=== PATIENT | female | born 1940 | race Caucasian/White ===

== ENCOUNTER → 2017-03-17 | Outpatient (CLI) | payer MEDICARE, BC ==
[2017-03-17 13:51] LABS: CH 30.3; CHCM 34.3; HCT 41.5 % (34.0-46.0); HDW 2.88; MCH 29.9 pg (25.0-35.0); MCHC 33.8 g/dL (31.0-37.0); MCV 88.6 fL (80.0-100.0); Mean Platelet Volume 6.5; RBC 4.69 m/uL (3.80-5.40); WBC 7.1 k/uL (3.8-10.6)
[2017-03-17 13:58] LABS: Appearance,Urine Clear (Clear); Bilirubin,Urine Negative (Negative); Glucose,Urine (UA) Negative (Negative); Ketones,Urine Negative (Negative); Leukocyte Esterase,Urine Small (Negative); Nitrite,Urine Negative (Negative); PH, Urine 6.5 (5.0-8.0); Particle Count 941; Protein,Urine Negative (Negative); RBC,Urine <1 /hpf (0-5); Specific Gravity,Urine 1.002 (1.001-1.035); Squamous Epithelial Cell,Urine 1 /hpf (0-4); UA Billing (MACRO vs. MICRO) MICRO; Urobilinogen,Urine <2.0 mg/dL (<2.0); WBC,Urine 3 /hpf (0-5)
[2017-03-17 14:02] LABS: ALT 72 U/L (9-52); AST 93 U/L (14-36); Alkaline Phosphatase 49 U/L (38-126); Anion Gap 10 mmol/L; Blood Urea Nitrogen 15 mg/dL (7-17); Calcium 9.2 mg/dL (8.4-10.2); Carbon Dioxide 29 mmol/L (22-30); Chloride 100 mmol/L (98-107); Glucose 110 mg/dL (74-99); Non-African American GFR(MDRD) >60 (>60 ml/min/1.73 sqM); Phosphorous 3.9 mg/dL (2.5-4.5); Potassium 3.6 mmol/L (3.5-5.1); Sodium 139 mmol/L (137-145); Total Bilirubin 1.2 mg/dL (0.2-1.3); Total Protein 7.1 g/dL (6.3-8.2)
--- NOTE | 2017-03-17 23:59 | US ---
EXAMINATION TYPE: US kidneys/renal and bladder DATE OF EXAM: 03/17/2017 1:09 PM COMPARISON: NONE CLINICAL HISTORY: 76-year-old female N18.3 Chronic kidney disease stage 3. CKD stage 3, frequent UTIs , pelvic pain. TECHNIQUE: Multiple sonographic images of the kidneys and bladder were obtained. FINDINGS: Right Kidney: 8.3 x 3.2 x 4.3 cm, small with cortical thinning. Some scattered cortical defects are present. Echogenic foci are present throughout, largest measuring 1.2 cm in the lower pole. No hydron ephrosis. Left Kidney: 9.0 x 5.3 x 4.3 cm with a lobulated contour. A few cortical defects are suggested. There is a tiny 7 mm exophytic hypoechoic lesion from the lateral mid pole. No hydronephrosis. No gross abnormality of the urine distended bladder. Both ureteral jets are visualized IMPRESSION: 1. Chronic medical renal disease. No hydronephrosis on either side. 2. Cortical defects involving the right greater than left kidneys could reflect sequela of prior vasc ular or infectious insults. 3. Echogenic foci throughout the right kidney, largest measuring 1.2 cm. Some of these are suspected to represent prominent vascular reflectors/vascular calcifications. Some underlying nephrolithiasis i s likely also present. 4. A tiny 7 mm exophytic lesion from the mid pole left kidney. Recommend six-month follow-up to reass ess and exclude a small solid mass.
== END | disposition home or self-care (01) ==
LOC: RADUSWWP 12:45 → MERGE 13:00
PROVIDERS: ATTEND Internal Medicine
DX: N18.3 Chronic kidney disease, stage 3 (moderate) (principal); R93.421 Abnormal radiologic findings on diagnostic imaging of right kidney; R93.422 Abnormal radiologic findings on diagnostic imaging of left kidney; N20.0 Calculus of kidney; N28.89 Other specified disorders of kidney and ureter; D64.9 Anemia, unspecified; E83.39 Other disorders of phosphorus metabolism; N39.0 Urinary tract infection, site not specified
CPT/HCPCS: 76770; 80053; 81001; 84100; 85027

== ENCOUNTER → 2017-07-19 | Outpatient (CLI) | payer MEDICARE, BC ==
[2017-07-19 10:59] LABS: CH 30.4; CHCM 34.7; HCT 45.1 % (34.0-46.0); HDW 2.92; HGB 15.5 gm/dL (11.4-16.0); MCH 30.3 pg (25.0-35.0); MCHC 34.4 g/dL (31.0-37.0); Mean Platelet Volume 6.5; RBC 5.13 m/uL (3.80-5.40); RDW 13.2 % (11.5-15.5); WBC 5.8 k/uL (3.8-10.6)
[2017-07-19 11:08] LABS: ALT 48 U/L (9-52); AST 43 U/L (14-36); Alkaline Phosphatase 61 U/L (38-126); Anion Gap 11 mmol/L; Blood Urea Nitrogen 16 mg/dL (7-17); Calcium 9.6 mg/dL (8.4-10.2); Carbon Dioxide 29 mmol/L (22-30); Chloride 104 mmol/L (98-107); Glucose 129 mg/dL (74-99); Magnesium 1.9 mg/dL (1.6-2.3); Non-African American GFR(MDRD) >60 (>60 ml/min/1.73 sqM); Phosphorous 4.3 mg/dL (2.5-4.5); Potassium 4.3 mmol/L (3.5-5.1); Sodium 144 mmol/L (137-145); Total Bilirubin 0.8 mg/dL (0.2-1.3); Total Protein 7.4 g/dL (6.3-8.2); Uric Acid 8.4 mg/dL (3.7-7.4)
[2017-07-19 11:13] LABS: Appearance,Urine Clear (Clear); Bacteria,Urine Rare /hpf; Bilirubin,Urine Negative (Negative); Glucose,Urine (UA) Negative (Negative); Ketones,Urine Negative (Negative); Leukocyte Esterase,Urine Moderate (Negative); Mucus,Urine Few /hpf; Nitrite,Urine Negative (Negative); Particle Count 6510; Protein,Urine Trace (Negative); RBC,Urine 20 /hpf (0-5); Specific Gravity,Urine 1.021 (1.001-1.035); Squamous Epithelial Cell,Urine 1 /hpf (0-4); UA Billing (MACRO vs. MICRO) MICRO; WBC,Urine 8 /hpf (0-5)
[2017-07-19 13:55] LABS: Hemoglobin A1C 5.9 % (4.2-6.1)
[2017-07-19 17:14] LABS: Iron Saturation 39.07 (12.00-45.00)
== END | disposition home or self-care (01) ==
LOC: LABWHC1 10:17
PROVIDERS: ATTEND Internal Medicine
DX: N18.2 Chronic kidney disease, stage 2 (mild) (principal)
CPT/HCPCS: 36415; 80053; 81001; 82306; 82728; 83036; 83540; 83550; 83735; 83970; 84100; 84550; 85027

== ENCOUNTER → 2017-08-07 | Outpatient (CLI) | payer MEDICARE, BC ==
--- NOTE | 2017-08-07 15:17 | CT ---
EXAMINATION TYPE: CT abdomen pelvis wo con DATE OF EXAM: 08/07/2017 COMPARISON: NONE HISTORY: Microscopic hematuria and pelvic pain CT DLP: 318.7 mGycm Automated exposure control for dose reduction was used. TECHNIQUE: Helical acquisition of images was performed from the lung bases through the pelvis. FINDINGS: Evaluation of the hollow and solid viscera is limited secondary to the lack of intravenous and oral contrast. LUNG BASES: No significant abnormality is appreciated. LIVER/GB: Gallbladder is surgically absent. Unenhanced liver is of normal morphology. PANCREAS: No significant abnormality is seen. SPLEEN: Peripherally calcified 1.6 x 1.5 cm pseudoaneurysm is seen near the splenic hilum with possib le additional second 1.0 cm calcified splenic arterial aneurysm. Small splenule is seen just inferior to the splenic hilum. ADRENALS: Nodular contour of the left adrenal gland without measurable lesion may relate to adrenal g land hyperplasia as it maintains an adreniform shape. Great adrenal gland is unremarkable. KIDNEYS: 6 mm nonobstructing renal calculus is present within the upper pole as well as dystrophic ca lcification of the upper pole cortex on series 3 image 47 measuring approximately 2 mm. Another large calcifications are seen within the inferior pole that span the renal sinus and renal cortex with bjonr al cortical atrophy and retraction of the lower pole in association with the larger dystrophic calcif ication on series 3 image 56 measuring 1.6 cm. This is thought to represent sequela of prior injury. Additional similar region in the lower pole on series 3 image 55 measures 6.5 mm. A 2 mm nonobstructi ng left midpole calculus is also present. No evidence of hydronephrosis or proximal to mid ureteral d ilation, however distal ureters are nonvisualized due to extensive spray artifact generated from bila teral hip prostheses. FREE AIR: No free air is visualized ADENOPATHY: No greater than 1 cm lymph nodes are seen within the abdomen or pelvis.. 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 Only minimal degenerative changes are seen in the remaining osseous structures. BOWEL: Numerous sigmoid diverticula are present without distinguish to pericolonic fat stranding alth ough again there is limited visualization of the pelvis due to extensive spray artifact from bilatera l hip prostheses. No bowel enlargement to suggest obstructive process. IMPRESSION: 1. BILATERAL NONOBSTRUCTING RENAL CALCULI AND LARGE DYSTROPHIC CALCIFICATIONS INVOLVING THE RENAL COR [place] AND COLLECTING SYSTEM/RENAL SINUS IN THE RIGHT LOWER POLE WITH CORTICAL ATROPHY AND RETRACTION LI MARIJA FROM PRIOR INJURY. 2. 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 3. FINDINGS SUGGESTIVE OF LEFT ADRENAL GLAND HYPERPLASIA. 4. 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
== END | disposition home or self-care (01) ==
LOC: RADCTMAIN 14:42
PROVIDERS: ATTEND Urology
DX: N20.0 Calculus of kidney (principal); I72.8 Aneurysm of other specified arteries
CPT/HCPCS: 74176

== ENCOUNTER → 2017-12-31 | Outpatient (CLI) | payer MEDICARE, BC ==
--- NOTE | 2018-01-01 10:17 | MM ---
Reason for exam: screening (asymptomatic). Last mammogram was performed 1 year and 4 months ago. History: Patient is postmenopausal. Benign stereotactic core biopsy of the left breast, May 21, 2002. Took estrogen for 10 years beginning at age 49. Physical Findings: A clinical breast exam by your physician is recommended on an annual basis and results should be correlated with mammographic findings. MG 3D Screening Mammo W/Cad Bilateral CC and MLO view(s) were taken. Prior study comparison: August 28, 2016, bilateral MG screening mammo w CAD. September 14, 2014, bilateral MG screening mammo w CAD. There are scattered fibroglandular densities. Finding: There are typically benign round, regional, linear calcifications in the right breast. Previous mammotome biopsy in the left breast. There is no discrete abnormality. ASSESSMENT: Benign, BI-RAD 2 RECOMMENDATION: Routine screening mammogram of both breasts in 1 year.
== END | disposition home or self-care (01) ==
LOC: RADMAMWWP 11:37
PROVIDERS: ATTEND Nurse Practitioner Women's Health
DX: Z12.31 Encounter for screening mammogram for malignant neoplasm of breast (principal)
CPT/HCPCS: 77063; 77067

== ENCOUNTER → 2019-03-04 | Outpatient (CLI) | payer MEDICARE, BC ==
--- NOTE | 2019-03-05 12:19 | MM ---
Reason for exam: screening (asymptomatic). Last mammogram was performed 1 year and 2 months ago. History: Patient is postmenopausal. Benign stereotactic core biopsy of the left breast, May 21, 2002. Took estrogen for 10 years beginning at age 49. Physical Findings: A clinical breast exam by your physician is recommended on an annual basis and results should be correlated with mammographic findings. MG 3D Screening Mammo W/Cad Bilateral CC and MLO view(s) were taken. Prior study comparison: December 31, 2017, bilateral MG 3d screening mammo w/cad. August 28, 2016, bilateral MG screening mammo w CAD. There are scattered fibroglandular densities. Stable benign calcifications. There is no discrete abnormality. No significant changes when compared with prior studies. ASSESSMENT: Benign, BI-RAD 2 RECOMMENDATION: Routine screening mammogram of both breasts in 1 year.
== END ==
LOC: RADMAMWWP 10:50
PROVIDERS: ATTEND Family Medicine
DX: Z12.31 Encounter for screening mammogram for malignant neoplasm of breast (principal)
CPT/HCPCS: 77063; 77067

== ENCOUNTER 2021-07-13 17:48 | Emergency (ER) | payer MEDICARE, BC ==
[2021-07-13] MEDS ORDERED: IBUPROFEN 600 MG TAB PO STA (18:07)
[2021-07-13] MEDS ORDERED: ACETAMINOPHEN TAB 325 MG TAB PO STA (18:07)
[2021-07-13] MEDS: SODIUM CHLORIDE 0.9% 500 ML 500 ML IV SCH ×2 (18:22→19:05)
[2021-07-13 18:37] LABS: African American GFR (CKD) >90 (>60 ml/min/1.73 sqM); Albumin 4.1 g/dL (3.5-5.0); Alkaline Phosphatase 229 U/L (38-126); Anion Gap 11 mmol/L; Blood Urea Nitrogen 13 mg/dL (7-17); Calcium 9.1 mg/dL (8.4-10.2); Carbon Dioxide 22 mmol/L (22-30); Chloride 101 mmol/L (98-107); Glucose 215 mg/dL (74-99); Non-African American GFR(CKD) 81 (>60 ml/min/1.73 sqM); Potassium 3.3 mmol/L (3.5-5.1); Sodium 134 mmol/L (137-145); Total Bilirubin 5.2 mg/dL (0.2-1.3); Total Protein 6.7 g/dL (6.3-8.2)
[2021-07-13 18:45] LABS: Partial Thromboplastin Time 20.2 sec (22.0-30.0)
[2021-07-13] MEDS ORDERED: PIPERACILLIN-TAZOBACTAM 3.375 GM in SODIUM CHLORIDE 0.9% 100 ML IVPB STA (18:55)
--- NOTE | 2021-07-13 18:59 | ED ---
Fever HPI - General Chief Complaint: Fever Stated Complaint: abd pain Time Seen by Provider: 07/13/21 18:06 Source: patient, EMS Mode of arrival: EMS Limitations: no limitations - History of Present Illness Initial Comments: Kobi is a pleasant 80 female is brought to the ER today via private vehicle at the advice of her primary care provider. Patient reports that she's had 3 days of abdominal pain. Patient believes the pain is constant and doesn't know if it's associated with eating has not been eating or drinking well for the past 2 days. Saw her primary care who did a KUB x-ray and told him from the ER for further evaluation. Patient states she has felt sweaty and had cold chills but hadn't checked her temperature until she got to the hospital noted that it was 104.0. Patient is status post cholecystectomy years ago. - Related Data Home Medications Medication Instructions Recorded Confirmed Bisoprolol-Hctz 5-6.25 mg [Ziac 1 tab PO DAILY 07/13/21 07/13/21 5-6.25 MG] Lansoprazole [Prevacid] 30 mg PO DAILY 07/13/21 07/13/21 Probiotic Gummies 2 tab PO DAILY 07/13/21 07/13/21 Allergies Allergy/AdvReac Type Severity Reaction Status Date / Time Sulfa (Sulfonamide Allergy Unknown Verified 07/13/21 20:19 Antibiotics) Childhood Review of Systems ROS Statement: Those systems with pertinent positive or pertinent negative responses have been documented in the HPI. ROS Other: All systems not noted in ROS Statement are negative. Past Medical History Past Medical History: Diabetes Mellitus, GERD/Reflux, Hypertension History of Any Multi-Drug Resistant Organisms: None Reported Past Surgical History: Cholecystectomy, Hysterectomy, Orthopedic Surgery, Tubal Ligation Past Psychological History: No Psychological Hx Reported Smoking Status: Former smoker Past Alcohol Use History: None Reported Past Drug Use History: None Reported General Exam - General Exam Comments Initial Comments: Physical Exam GENERAL: Patient is well-developed and well-nourished. Ill appearing HENT: Normocephalic, Atraumatic. EYES: PERRL, EOMI PULMONARY: Unlabored respirations. No audible rales rhonchi or wheezing was noted. CARDIOVASCULAR: There is a regular rate and rhythm without any murmurs gallops or rubs. ABDOMEN: Soft Tender in RUQ and epigastrum SKIN: Pale : Deferred NEUROLOGIC: Patient is alert and oriented x3. Moving all extremities spontaneously MUSCULOSKELETAL: Normal extremities with adequate strength and full range of motion. No lower extremity swelling or edema. No calf tenderness. PSYCHIATRIC: Normal psychiatric evaluation. Limitations: no limitations Course Vital Signs 07/13/21 07/13/21 17:50 20:34 Temperature 104.0 F H 99.0 F Pulse Rate 95 93 Respiratory 17 20 Rate Blood Pressure 143/66 103/57 O2 Sat by Pulse 95 95 Oximetry Medical Decision Making - Medical Decision Making The patient was seen and evaluated history was obtained from patient and family at bedside 80-year-old female with a fever of 104 and abdominal pain Septic workup was initiated Antipyretics Tylenol and Motrin were given IV fluids were ordered Resulted with a critically elevated transaminitis patient is status post cholecystectomy, computed tomography scan was ordered, Unasyn was ordered Patient with no leukocytosis, normal lactic acidosis is 3.4 patient is receiving IV fluids Computed tomography scan results with evidence of choledocholithiasis with biliary ductal dilatation Patient will require transfer to a facility with GI capabilities patient and family are agreeable transferred to [facility] Patient care was discussed with Dr. Matamoros at [facility] who accepts the transfer - Lab Data Result diagrams: 07/13/21 18:16 07/13/21 18:16 Lab Results 07/13/21 07/13/21 07/13/21 Range/Units 18:16 18:16 18:16 WBC 5.9 (3.8-10.6) k/uL RBC 4.43 (3.80-5.40) m/uL Hgb 14.8 (11.4-16.0) gm/dL Hct 40.3 (34.0-46.0) % MCV 91.1 (80.0-100.0) fL MCH 33.5 (25.0-35.0) pg MCHC 36.8 (31.0-37.0) g/dL RDW 12.5 (11.5-15.5) % Plt Count 120 L (150-450) k/uL MPV 7.1 Neutrophils % (Manual) 81 % Band Neuts % (Manual) 11 % Lymphocytes % (Manual) 6 % Monocytes % (Manual) 2 % Neutrophils # (Manual) 5.40 (1.3-7.7) k/uL Lymphocytes # (Manual) 0.35 L (1.0-4.8) k/uL Monocytes # (Manual) 0.12 (0-1.0) k/uL Nucleated RBCs 0 (0-0) /100 WBC Manual Slide Review Performed PT 11.0 (9.0-12.0) sec INR 1.0 (<1.2) APTT 20.2 L (22.0-30.0) sec Sodium (137-145) mmol/L Potassium (3.5-5.1) mmol/L Chloride (98-107) mmol/L Carbon Dioxide (22-30) mmol/L Anion Gap mmol/L BUN (7-17) mg/dL Creatinine (0.52-1.04) mg/dL Est GFR (CKD-EPI)AfAm (>60 ml/min/1.73 sqM) Est GFR (CKD-EPI)NonAf (>60 ml/min/1.73 sqM) Glucose (74-99) mg/dL Lactic Ac Sepsis Rflx Plasma Lactic Acid Grey (0.7-2.0) mmol/L Calcium (8.4-10.2) mg/dL Total Bilirubin (0.2-1.3) mg/dL AST (14-36) U/L ALT (4-34) U/L Alkaline Phosphatase (38-126) U/L Total Protein (6.3-8.2) g/dL Albumin (3.5-5.0) g/dL Lipase (23-300) U/L Urine Color Yellow Urine Appearance Clear (Clear) Urine pH 6.5 (5.0-8.0) Ur Specific [place] 1.014 (1.001-1.035) Urine Protein Negative (Negative) Urine Glucose (UA) Trace H (Negative) Urine Ketones 2+ H (Negative) Urine Blood Moderate H (Negative) Urine Nitrite Negative (Negative) Urine Bilirubin 1+ H (Negative) Urine Urobilinogen 4.0 (<2.0) mg/dL Ur Leukocyte Esterase Negative (Negative) Urine RBC 42 H (0-5) /hpf Urine WBC <1 (0-5) /hpf Urine Mucus Rare H (None) /hpf Coronavirus (PCR) (Not Detectd) 07/13/21 07/13/21 07/13/21 Range/Units 18:16 18:16 18:44 WBC (3.8-10.6) k/uL RBC (3.80-5.40) m/uL Hgb (11.4-16.0) gm/dL Hct (34.0-46.0) % MCV (80.0-100.0) fL MCH (25.0-35.0) pg MCHC (31.0-37.0) g/dL RDW (11.5-15.5) % Plt Count (150-450) k/uL MPV Neutrophils % (Manual) % Band Neuts % (Manual) % Lymphocytes % (Manual) % Monocytes % (Manual) % Neutrophils # (Manual) (1.3-7.7) k/uL Lymphocytes # (Manual) (1.0-4.8) k/uL Monocytes # (Manual) (0-1.0) k/uL Nucleated RBCs (0-0) /100 WBC Manual Slide Review PT (9.0-12.0) sec INR (<1.2) APTT (22.0-30.0) sec Sodium 134 L (137-145) mmol/L Potassium 3.3 L (3.5-5.1) mmol/L Chloride 101 (98-107) mmol/L Carbon Dioxide 22 (22-30) mmol/L Anion Gap 11 mmol/L BUN 13 (7-17) mg/dL Creatinine 0.71 (0.52-1.04) mg/dL Est GFR (CKD-EPI)AfAm >90 (>60 ml/min/1.73 sqM) Est GFR (CKD-EPI)NonAf 81 (>60 ml/min/1.73 sqM) Glucose 215 H (74-99) mg/dL Lactic Ac Sepsis Rflx Y Plasma Lactic Acid Grey 3.4 H* (0.7-2.0) mmol/L Calcium 9.1 (8.4-10.2) mg/dL Total Bilirubin 5.2 H (0.2-1.3) mg/dL AST 2040 H (14-36) U/L ALT 1270 H (4-34) U/L Alkaline Phosphatase 229 H (38-126) U/L Total Protein 6.7 (6.3-8.2) g/dL Albumin 4.1 (3.5-5.0) g/dL Lipase (23-300) U/L Urine Color Urine Appearance (Clear) Urine pH (5.0-8.0) Ur Specific [place] (1.001-1.035) Urine Protein (Negative) Urine Glucose (UA) (Negative) Urine Ketones (Negative) Urine Blood (Negative) Urine Nitrite (Negative) Urine Bilirubin (Negative) Urine Urobilinogen (<2.0) mg/dL Ur Leukocyte Esterase (Negative) Urine RBC (0-5) /hpf Urine WBC (0-5) /hpf Urine Mucus (None) /hpf Coronavirus (PCR) (Not Detectd) 07/13/21 07/13/21 07/13/21 Range/Units 21:26 21:26 21:26 WBC (3.8-10.6) k/uL RBC (3.80-5.40) m/uL Hgb (11.4-16.0) gm/dL Hct (34.0-46.0) % MCV (80.0-100.0) fL MCH (25.0-35.0) pg MCHC (31.0-37.0) g/dL RDW (11.5-15.5) % Plt Count (150-450) k/uL MPV Neutrophils % (Manual) % Band Neuts % (Manual) % Lymphocytes % (Manual) % Monocytes % (Manual) % Neutrophils # (Manual) (1.3-7.7) k/uL Lymphocytes # (Manual) (1.0-4.8) k/uL Monocytes # (Manual) (0-1.0) k/uL Nucleated RBCs (0-0) /100 WBC Manual Slide Review PT (9.0-12.0) sec INR (<1.2) APTT (22.0-30.0) sec Sodium (137-145) mmol/L Potassium (3.5-5.1) mmol/L Chloride (98-107) mmol/L Carbon Dioxide (22-30) mmol/L Anion Gap mmol/L BUN (7-17) mg/dL Creatinine (0.52-1.04) mg/dL Est GFR (CKD-EPI)AfAm (>60 ml/min/1.73 sqM) Est GFR (CKD-EPI)NonAf (>60 ml/min/1.73 sqM) Glucose (74-99) mg/dL Lactic Ac Sepsis Rflx Plasma Lactic Acid Grey 3.8 H* (0.7-2.0) mmol/L Calcium (8.4-10.2) mg/dL Total Bilirubin (0.2-1.3) mg/dL AST (14-36) U/L ALT (4-34) U/L Alkaline Phosphatase (38-126) U/L Total Protein (6.3-8.2) g/dL Albumin (3.5-5.0) g/dL Lipase 181 (23-300) U/L Urine Color Urine Appearance (Clear) Urine pH (5.0-8.0) Ur Specific [place] (1.001-1.035) Urine Protein (Negative) Urine Glucose (UA) (Negative) Urine Ketones (Negative) Urine Blood (Negative) Urine Nitrite (Negative) Urine Bilirubin (Negative) Urine Urobilinogen (<2.0) mg/dL Ur Leukocyte Esterase (Negative) Urine RBC (0-5) /hpf Urine WBC (0-5) /hpf Urine Mucus (None) /hpf Coronavirus (PCR) Not Detected (Not Detectd) Disposition Clinical Impression: Choledocholithiasis with obstruction, Ascending cholangitis Disposition: OTHER INSTITUTION NOT DEFINED Condition: Serious Referrals: Phil Mayfield MD [Primary Care Provider] - 1-2 days - Out of Hospital Transfer - Req. Specs Out of Hospital Transfer - Requested Specifics: Other Emergency Center ([place])
[2021-07-13 19:02] LABS: Appearance,Urine Clear (Clear); Bilirubin,Urine 1+ (Negative); Blood,Urine Moderate (Negative); Color,Urine Yellow; Glucose,Urine (UA) Trace (Negative); Ketones,Urine 2+ (Negative); Leukocyte Esterase,Urine Negative (Negative); Mucus,Urine Rare /hpf; Nitrite,Urine Negative (Negative); PH, Urine 6.5 (5.0-8.0); Protein,Urine Negative (Negative); RBC,Urine 42 /hpf (0-5); Specific Gravity,Urine 1.014 (1.001-1.035); WBC,Urine <1 /hpf (0-5)
[2021-07-13 19:03] LABS: AST 2040 U/L (14-36)
[2021-07-13 19:35] LABS: HCT 40.3 % (34.0-46.0); HGB 14.8 gm/dL (11.4-16.0); MCH 33.5 pg (25.0-35.0); MCHC 36.8 g/dL (31.0-37.0); MCV 91.1 fL (80.0-100.0); Mean Platelet Volume 7.1; Platelet Count 120 k/uL (150-450); RBC 4.43 m/uL (3.80-5.40); RDW 12.5 % (11.5-15.5); WBC 5.9 k/uL (3.8-10.6)
[2021-07-13 19:40] LABS: ALT 1270 U/L (4-34)
--- NOTE | 2021-07-13 19:40 | XR ---
EXAMINATION TYPE: XR chest 1V portable DATE OF EXAM: 07/13/2021 CLINICAL HISTORY: Fever. TECHNIQUE: Portable frontal view of the chest. COMPARISON: None FINDINGS: The cardiomediastinal silhouette is within normal limits for size. Pulmonary vasculature i s normal. There are mild bibasilar airspace opacities, left greater than right. No pleural effusion. No pneumothorax seen. No acute displaced osseous fracture. IMPRESSION: Mild bibasilar airspace opacities likely represent atelectasis.
[2021-07-13 20:11] LABS: Band Neutrophils % 11 %; Lymphocytes # (M) 0.35 k/uL (1.0-4.8); Monocytes # (M) 0.12 k/uL (0-1.0); Neutrophils % (M) 81 %; Nucleated Red Blood Cells 0 /100 WBC (0-0); Total Cells Counted 100
[2021-07-13 20:35] VITALS: RESP 20; TEMP 99
--- NOTE | 2021-07-13 20:55 | CT ---
EXAMINATION TYPE: CT abdomen pelvis w con DATE OF EXAM: 07/13/2021 COMPARISON: 08/07/2017 HISTORY: abdominal pain, fever CT DLP: 823.2 mGycm Automated exposure control for dose reduction was used. TECHNIQUE: Helical acquisition of images was performed from the lung bases through the pelvis. CONTRAST: Performed without Oral Contrast and with IV Contrast, patient injected with 100 mL of Isovue 300. FINDINGS: LUNG BASES: Normal. LIVER: Normal. BILIARY SYSTEM: Status post cholecystectomy. There is intrahepatic and extrahepatic biliary ductal di latation. Common bile duct measures up to 12 mm. Within the mid common bile duct there is a 11 x 12 m m intraluminal hyperdensity. PANCREAS: Normal. SPLEEN: There is a redemonstrated splenic artery aneurysm measuring up to 1.4 x 1.1 cm, not significa ntly changed from 2017. ADRENALS: Normal. KIDNEYS: No hydronephrosis bilaterally. There are redemonstrated nonobstructing right nephrolithiasis , cortical based calcifications, and subcortical scarring of the right kidney. BOWEL: No obstruction or thickening. Colonic diverticulosis. No acute diverticulitis. PERITONEUM: No pneumoperitoneum. No free fluid. LYMPH NODES: No lymphadenopathy. PELVIS: Obscured from streak artifact from bilateral hip prostheses. The visualized dome of the urina ry bladder is unremarkable. VASCULATURE: No abdominal aortic aneurysm. MUSCULOSKELETAL: Degenerative changes of the spine. Grade 1 anterolisthesis of L5 on S1 with bilater al L5 pars defects. IMPRESSION: Status post cholecystectomy. There is intrahepatic and extrahepatic biliary ductal dilatation. The co mmon bile duct measures up to 12 mm. Within the mid common bile duct there is an 11 x 12 intraluminal hyperdensity. Differential includes sludge ball and choledocholithiasis. Recommend ERCP.
[2021-07-13] MEDS ORDERED: SODIUM CHLORIDE 0.9% 1,000 ML IV SCH (21:15)
[2021-07-13 22:37] VITALS: BP 90/53; PULSE 89
== END 2021-07-13 23:13 | disposition other institution (70) ==
LOC: EC 17:48
DX: K80.31 Calculus of bile duct with cholangitis, unspecified, with obstruction (principal); R61 Generalized hyperhidrosis; R50.9 Fever, unspecified; E11.9 Type 2 diabetes mellitus without complications; I10 Essential (primary) hypertension; K21.9 Gastro-esophageal reflux disease without esophagitis; Z79.899 Other long term (current) drug therapy; Z87.891 Personal history of nicotine dependence; Z88.2 Allergy status to sulfonamides; Z90.49 Acquired absence of other specified parts of digestive tract; Z20.822 Contact with and (suspected) exposure to COVID-19
CPT/HCPCS: 99285; 36415; 80053; 83605; 83690; 85025; 85610; 85730; 81001; 87040; 87077; 87186; 87635; 71045; 74177; 96365; 96366; 96361; J2543; Q9967

== ENCOUNTER 2021-11-01 10:00 | Emergency (ER) | payer MEDICARE, BC ==
--- NOTE | 2021-11-01 10:41 | ED ---
General Adult HPI - General Source: RN notes reviewed <Yadiel Bolton - Last Filed: 11/01/21 13:11> <Melvi George - Last Filed: 11/01/21 22:33> - General Stated complaint: Abdominal pain, vomiting Time Seen by Provider: 11/01/21 10:33 - History of Present Illness Initial comments: 80-year-old female with a past medical history of diabetes mellitus, hypertension presents to the emergency room for abdominal pain. Patient has had upper abdominal pain starting last night. States it radiates to her back. Patient states this past August she had a stent placed in one of her hepatic d ucts as there was a stone present. Patient states that September she had a stone and stent were removed. States that they were able to get all of the stones. Patient states she has not had any issues until yesterday when the pain started again.Patient has no other complaints at this time including shortness of breath, chest pain, nausea or vomiting, headache, or visual changes. (Yadiel Toney) - Related Data Home Medications Medication Instructions Recorded Confirmed Bisoprolol-Hctz 5-6.25 mg [Ziac 1 tab PO HS 07/13/21 11/01/21 5-6.25 MG] Lansoprazole [Prevacid] 30 mg PO DAILY 07/13/21 11/01/21 Prednisolone Acetate/Pf 1 drop LEFT EYE TID 11/01/21 11/01/21 [Prednisolone Acet 1% Eye Drop] Allergies Allergy/AdvReac Type Severity Reaction Status Date / Time Sulfa (Sulfonamide Allergy Unknown Verified 11/01/21 11:26 Antibiotics) Childhood Review of Systems ROS Other: All systems not noted in ROS Statement are negative. <Yadiel Bolton - Last Filed: 11/01/21 13:11> ROS Other: All systems not noted in ROS Statement are negative. <Melvi George - Last Filed: 11/01/21 22:33> ROS Statement: Those systems with pertinent positive or pertinent negative responses have been documented in the HPI. Past Medical History Past Medical History: Diabetes Mellitus, GERD/Reflux, Hypertension History of Any Multi-Drug Resistant Organisms: None Reported Past Surgical History: Cholecystectomy, Hysterectomy, Orthopedic Surgery, Tubal Ligation Past Psychological History: No Psychological Hx Reported Smoking Status: Former smoker Past Alcohol Use History: None Reported Past Drug Use History: None Reported <Yadiel Bolton - Last Filed: 11/01/21 13:11> General Exam General appearance: alert, in no apparent distress Head exam: Present: atraumatic Eye exam: Present: normal appearance, PERRL, EOMI. Absent: scleral icterus, conjunctival injection ENT exam: Present: normal exam, mucous membranes moist Neck exam: Present: normal inspection, full ROM. Absent: tenderness Respiratory exam: Present: normal lung sounds bilaterally. Absent: respiratory distress, wheezes Cardiovascular Exam: Present: regular rate, normal rhythm, normal heart sounds GI/Abdominal exam: Present: soft, tenderness (no significant abdominal tenderness), normal bowel sounds. Absent: distended, guarding, rebound <Yadiel Bolton - Last Filed: 11/01/21 13:11> Course Vital Signs 11/01/21 11/01/21 11/01/21 10:39 12:00 13:52 Temperature 99 F 98.7 F Pulse Rate 91 86 89 Respiratory 16 20 18 Rate Blood Pressure 144/81 136/77 137/80 O2 Sat by Pulse 98 97 97 Oximetry Medical Decision Making - Lab Data Result diagrams: 11/01/21 10:50 11/01/21 10:50 <Yadiel Bolton - Last Filed: 11/01/21 13:11> - Lab Data Result diagrams: 11/01/21 10:50 11/01/21 10:50 <Melvi George - Last Filed: 11/01/21 22:33> - Medical Decision Making vitals are stable. CBC is unremarkable. CMP shows minimal transaminitis much improved from previous visit. Urinalysis does not show any obvious evidence of infection. Lactic acid of 3 is likely secondary to dehydration. Patient was given a liter of fluid. Patient reevaluated and is having no pain whatsoever. At this time I reevaluated her abdomen she continues to be nontender. He will discharge her home to follow up with primary care but if she gets worsening symptoms she will return to the emergency room for further evaluation. (Yadiel Bolton) I was available for consultation in the emergency department. The history and physical exam were done by the midlevel provider. I was consulted for this patients care. I reviewed the case with the midlevel provider and based on their presentation of the patient, I agree with the assessment, medical decision making and plan of care as documented. Chart was dictated using [employer] dictation software. Attempts were made to correct any dictation errors however some typographical errors may persist. Patient was seen during a national state of emergency due to the Covid-19 pandemic. (Melvi George) - Lab Data Lab Results 11/01/21 11/01/21 11/01/21 Range/Units 10:50 10:50 10:50 WBC 10.9 H (3.8-10.6) k/uL RBC 4.39 (3.80-5.40) m/uL Hgb 13.5 (11.4-16.0) gm/dL Hct 39.3 (34.0-46.0) % MCV 89.4 (80.0-100.0) fL MCH 30.6 (25.0-35.0) pg MCHC 34.3 (31.0-37.0) g/dL RDW 13.7 (11.5-15.5) % Plt Count 188 (150-450) k/uL MPV 6.6 Neutrophils % 84 % Lymphocytes % 9 % Monocytes % 5 % Eosinophils % 1 % Basophils % 0 % Neutrophils # 9.2 H (1.3-7.7) k/uL Lymphocytes # 0.9 L (1.0-4.8) k/uL Monocytes # 0.6 (0-1.0) k/uL Eosinophils # 0.1 (0-0.7) k/uL Basophils # 0.0 (0-0.2) k/uL Sodium 135 L (137-145) mmol/L Potassium 3.5 (3.5-5.1) mmol/L Chloride 101 (98-107) mmol/L Carbon Dioxide 23 (22-30) mmol/L Anion Gap 11 mmol/L BUN 15 (7-17) mg/dL Creatinine 0.75 (0.52-1.04) mg/dL Est GFR (CKD-EPI)AfAm 87 (>60 ml/min/1.73 sqM) Est GFR (CKD-EPI)NonAf 75 (>60 ml/min/1.73 sqM) Glucose 200 H (74-99) mg/dL Lactic Ac Sepsis Rflx Plasma Lactic Acid Grey (0.7-2.0) mmol/L Calcium 9.2 (8.4-10.2) mg/dL Total Bilirubin 1.0 (0.2-1.3) mg/dL AST 65 H (14-36) U/L ALT 43 H (4-34) U/L Alkaline Phosphatase 72 (38-126) U/L Troponin I <0.012 (0.000-0.034) ng/mL Total Protein 6.8 (6.3-8.2) g/dL Albumin 3.9 (3.5-5.0) g/dL Amylase 91 (30-110) U/L Lipase 63 (23-300) U/L Urine Color Urine Appearance (Clear) Urine pH (5.0-8.0) Ur Specific [place] (1.001-1.035) Urine Protein (Negative) Urine Glucose (UA) (Negative) Urine Ketones (Negative) Urine Blood (Negative) Urine Nitrite (Negative) Urine Bilirubin (Negative) Urine Urobilinogen (<2.0) mg/dL Ur Leukocyte Esterase (Negative) Urine RBC (0-5) /hpf Urine WBC (0-5) /hpf Urine Mucus (None) /hpf 11/01/21 11/01/21 11/01/21 Range/Units 10:50 11:31 11:37 WBC (3.8-10.6) k/uL RBC (3.80-5.40) m/uL Hgb (11.4-16.0) gm/dL Hct (34.0-46.0) % MCV (80.0-100.0) fL MCH (25.0-35.0) pg MCHC (31.0-37.0) g/dL RDW (11.5-15.5) % Plt Count (150-450) k/uL MPV Neutrophils % % Lymphocytes % % Monocytes % % Eosinophils % % Basophils % % Neutrophils # (1.3-7.7) k/uL Lymphocytes # (1.0-4.8) k/uL Monocytes # (0-1.0) k/uL Eosinophils # (0-0.7) k/uL Basophils # (0-0.2) k/uL Sodium (137-145) mmol/L Potassium (3.5-5.1) mmol/L Chloride (98-107) mmol/L Carbon Dioxide (22-30) mmol/L Anion Gap mmol/L BUN (7-17) mg/dL Creatinine (0.52-1.04) mg/dL Est GFR (CKD-EPI)AfAm (>60 ml/min/1.73 sqM) Est GFR (CKD-EPI)NonAf (>60 ml/min/1.73 sqM) Glucose (74-99) mg/dL Lactic Ac Sepsis Rflx Y Plasma Lactic Acid Grey 3.0 H* (0.7-2.0) mmol/L Calcium (8.4-10.2) mg/dL Total Bilirubin (0.2-1.3) mg/dL AST (14-36) U/L ALT (4-34) U/L Alkaline Phosphatase (38-126) U/L Troponin I (0.000-0.034) ng/mL Total Protein (6.3-8.2) g/dL Albumin (3.5-5.0) g/dL Amylase (30-110) U/L Lipase (23-300) U/L Urine Color Light Yellow Urine Appearance Clear (Clear) Urine pH 6.5 (5.0-8.0) Ur Specific [place] 1.011 (1.001-1.035) Urine Protein Negative (Negative) Urine Glucose (UA) Negative (Negative) Urine Ketones Negative (Negative) Urine Blood Trace H (Negative) Urine Nitrite Negative (Negative) Urine Bilirubin Negative (Negative) Urine Urobilinogen <2.0 (<2.0) mg/dL Ur Leukocyte Esterase Negative (Negative) Urine RBC 7 H (0-5) /hpf Urine WBC 2 (0-5) /hpf Urine Mucus Rare H (None) /hpf Disposition Is patient prescribed a controlled substance at d/c from ED?: No Time of Disposition: 12:59 <Yadiel Bolton P - Last Filed: 11/01/21 13:11> <Melvi George - Last Filed: 11/01/21 22:33> Clinical Impression: Abdominal pain Disposition: HOME SELF-CARE Condition: Good Instructions (If sedation given, give patient instructions): Abdominal Pain (ED) Additional Instructions: Please follow-up with your primary care doctor in one to 2 days. Return to the emergency room for any worsening symptoms. Referrals: Phil Mayfield MD [Primary Care Provider] - 1-2 days
[2021-11-01] MEDS: SODIUM CHLORIDE 0.9% 1,000 ML IV STA (10:51)
[2021-11-01 11:04] LABS: Basophils % (A) 0 %; Eosinophils # (A) 0.1 k/uL (0-0.7); Eosinophils % (A) 1 %; HCT 39.3 % (34.0-46.0); HGB 13.5 gm/dL (11.4-16.0); Lymphocytes # (A) 0.9 k/uL (1.0-4.8); Lymphocytes % (A) 9 %; MCH 30.6 pg (25.0-35.0); MCHC 34.3 g/dL (31.0-37.0); MCV 89.4 fL (80.0-100.0); Mean Platelet Volume 6.6; Monocytes # (A) 0.6 k/uL (0-1.0); Monocytes % (A) 5 %; Neutrophils # (A) 9.2 k/uL (1.3-7.7); Neutrophils % (A) 84 %; Platelet Count 188 k/uL (150-450); RBC 4.39 m/uL (3.80-5.40); RDW 13.7 % (11.5-15.5); WBC 10.9 k/uL (3.8-10.6)
[2021-11-01 11:21] LABS: Albumin 3.9 g/dL (3.5-5.0); Calcium 9.2 mg/dL (8.4-10.2); Potassium 3.5 mmol/L (3.5-5.1); Total Protein 6.8 g/dL (6.3-8.2)
[2021-11-01 12:10] LABS: Appearance,Urine Clear (Clear); Bilirubin,Urine Negative (Negative); Blood,Urine Trace (Negative); Color,Urine Light Yellow; Glucose,Urine (UA) Negative (Negative); Ketones,Urine Negative (Negative); Leukocyte Esterase,Urine Negative (Negative); Mucus,Urine Rare /hpf; Nitrite,Urine Negative (Negative); PH, Urine 6.5 (5.0-8.0); Protein,Urine Negative (Negative); RBC,Urine 7 /hpf (0-5); Specific Gravity,Urine 1.011 (1.001-1.035); Urobilinogen,Urine <2.0 mg/dL (<2.0); WBC,Urine 2 /hpf (0-5)
[2021-11-01 13:53] VITALS: BP 137/80; PULSE 89; RESP 18; TEMP 98.7
== END 2021-11-01 13:55 | disposition home or self-care (01) ==
LOC: EC 10:00
DX: R10.10 Upper abdominal pain, unspecified (principal); R74.01 Elevation of levels of liver transaminase levels; E11.9 Type 2 diabetes mellitus without complications; I10 Essential (primary) hypertension; K21.9 Gastro-esophageal reflux disease without esophagitis; Z87.891 Personal history of nicotine dependence; Z90.49 Acquired absence of other specified parts of digestive tract; Z88.2 Allergy status to sulfonamides; Z79.899 Other long term (current) drug therapy
CPT/HCPCS: 36415; 80053; 81001; 82150; 83605; 83690; 84484; 85025; 93005; 96360; 99284